=== PATIENT | female | born 1945 | race Caucasian/White ===

== ENCOUNTER 2017-12-24 21:25 | Observation (INO) | payer OTHER ==
[~2017-12-24 21:25] MED LIST: ASPI-516 CHEW; ATOR10TA15 PO; NITR1SUB3 SL; PLAV75TA29 PO
[2017-12-24 23:00] VITALS: PULSE 61
[2017-12-25 00:22] VITALS: BP 123/73; PULSE 56; RESP 18; TEMP 97.7; O2SAT 99
[2017-12-25] MEDS ORDERED: SODIUM CHLORIDE 0.9% FLUSH 10 ML FLUSH IV FLUSH PRN ×2 (02:45)
[2017-12-25] MEDS ORDERED: ONDANSETRON HCL 4 MG/2 ML VIAL IV PUSH PRN (02:45)
[2017-12-25] MEDS ORDERED: ACETAMINOPHEN 500 MG CPLT PO PRN (02:45)
[2017-12-25 07:01] VITALS: PULSE 47
[2017-12-25 07:21] VITALS: BP 143/76; PULSE 63; RESP 18; TEMP 97.9; O2SAT 99
[2017-12-25] MEDS ORDERED: CLOPIDOGREL 75 MG TAB PO SCH (09:15)
--- NOTE | 2017-12-25 10:47 | HHI.HP ---
HPI Primary Care Physician Unknown Chief Complaint Chest pain History of Present Illness This is a 72-year-old Congolese-speaking female patient that presents to ED via private vehicle with her daughter with a complaint of chest pain. She has history of CAD with a stent about 5 years ago in [place]. This information is obtained with the [employer] system. She has been having a tightness in the center of her chest with shortness of breath intermittently for the last 2 weeks. Denies nausea or diaphoresis. Nothing in particular seems to bring on the discomfort but when it is there bending forward and doing some extraneous to worsen it. When it occurs will last for up to 2 days. Found nothing in particular to help the discomfort other than just trying to calm herself down. States it does not feel similar to when eating a stent 5 years ago. Has not seen a soda worker locally, moved here from [place] about a year ago. She has a first appointment with a soda worker in [place] in January. States she has not had a stress test or heart catheterization since her stent 5 years ago. Currently has no discomfort. She is compliant with her medications. Review of Systems General: Patient denies fevers, chills, and recent travel. HEENT: Patient denies headache, sore throat, difficulty swallowing. Cardiovascular: Has the chest discomfort as mentioned above. Denies sensation of heart beating rapidly or irregularly. No syncope. Denies diaphoresis. Respiratory: She has been short of breath intermittently with the discomfort over the last 2 weeks. Denies inspirational chest discomfort. Denies coughing wheezing or hemoptysis. GI: Patient denies nausea, vomiting, diarrhea, abdominal pain, bloody stools. Musculoskeletal: Patient denies joint pain or edema. Denies calf pain or edema. Neurovascular: Patient denies numbness, tingling, weakness in extremities. Denies headache. Endocrine: Denies polyuria and polydipsia. Hematologic: Denies easy bruising. Skin: Denies rash or itching. Past Family Social History Allergies: Coded Allergies: latex (Verified Allergy, Severe, 12/24/17) Past Medical History CAD with stent 5 years ago. Hyperlipidemia. Denies hypertension and diabetes. Lifetime non-smoker. Past Surgical History Cardiac catheterization with stenting 5 years ago. 2. Hysterectomy. Reported Medications Reported Meds & Active Scripts Active Reported Atorvastatin (Atorvastatin Calcium) 10 Mg Tab 10 Mg PO HS Aspirin 81 Mg Chew 81 Mg CHEW DAILY Plavix (Clopidogrel Bisulfate) 75 Mg Tab 75 Mg PO DAILY Active Ordered Medications Current Medications Medications (Trade) Dose Ordered Sig/Sushma Route Start Time Stop Time Status Last Admin (NS Flush) 2 ml UNSCH PRN IV FLUSH 12/25/17 02:45 (NS Flush) 2 ml UNSCH PRN IV FLUSH 12/25/17 02:45 (Tylenol) 500 mg Q4H PRN PO 12/25/17 02:45 (Zofran Inj) 4 mg Q6H PRN IV PUSH 12/25/17 02:45 (Lipitor) 10 mg HS PO 12/25/17 21:00 (Plavix) 75 mg DAILY PO 12/25/17 09:15 12/25/17 09:15 Family History Her mother had CAD. Social History Lifetime non-smoker. Has occasional alcohol. Denies illicit drugs. Lives with her daughter. Physical Exam Vital Signs Vital Signs Date Time Temp Pulse Resp B/P (MAP) Pulse Ox O2 Delivery O2 Flow Rate FiO2 12/25/17 07:21 97.9 63 18 143/76 (98) 99 12/25/17 07:01 47 12/25/17 00:22 97.7 56 18 123/73 (90) 99 12/24/17 23:00 61 Physical Exam GENERAL: This is a well-nourished, well-developed patient, in no apparent distress. Patient speaks in clear complete sentences. Patient is pleasant. HEENT: Head is atraumatic and normocephalic. Neck is supple without lymphadenopathy and trachea is midline. No JVD or carotid bruits. CARDIOVASCULAR: Regular rate and rhythm without murmurs, gallops, or rubs. RESPIRATORY: Clear to auscultation. Breath sounds equal bilaterally. No wheezes , rales, or rhonchi. Chest wall is tender but is not sure if that is the same type of discomfort that brought her to the ED. No use of accessory muscles. GASTROINTESTINAL: Abdomen is nontender, nondistended. Abdomen soft. No obvious pulsatile mass or bruit. No CVA tenderness. Strong femoral pulses bilaterally. Normal bowel sounds in all quadrants. MUSCULOSKELETAL: Patient is moving upper and lower extremities freely. No calf tenderness or edema, no Homans sign. Strong pulses in upper and lower extremities. NEUROLOGICAL: Patient is alert and oriented. Cranial nerves 2-12 are grossly intact. No focal deficits and speech is clear. SKIN: No rash and turgor is normal. Laboratory Laboratory Tests Test 12/24/17 23:00 Troponin I LESS THAN 0.02 Imaging Chest x-ray reveals nothing acute. Course EKGs are sinus rhythm without significant ST segment depressions or elevations. Caprini VTE Risk Assessment Caprini VTE Risk Assessment: Mod/High Risk (score >= 2) Caprini Risk Assessment Model Point Value = 1 Point Value = 2 Point Value = 3 Point Value = 5 Age 41-60 Minor surgery BMI > 25 kg/m2 Swollen legs Varicose veins or History of unexplained or recurrent spontaneous Oral contraceptives or hormone replacement Sepsis (< 1 month) Serious lung disease, including pneumonia (< 1 month) Abnormal pulmonary function Acute myocardial infarction Congestive heart failure (< 1 month) History of inflammatory bowel disease Medical patient at bed rest Age 61-74 Arthroscopic surgery Major open surgery (> 45 min) Laparoscopic surgery (> 45 min) Malignancy Confined to bed (> 72 hours) Immobilizing plaster cast Central venous access Age >= 75 History of VTE Family history of VTE Factor V Leiden Prothrombin [id number] Lupus anticoagulant Anticardiolipin antibodies Elevated serum homocysteine Heparin-induced thrombocytopenia Other congenital or acquired thrombophilia Stroke (< 1 month) Elective arthroplasty Hip, pelvis, or leg fracture Acute spinal cord injury (< 1 month) Prophylaxis Regimen Total Risk Factor Score Risk Level Prophylaxis Regimen 0-1 Low Early ambulation 2 Moderate Order ONE of the following: *Sequential Compression Device (SCD) *Heparin 5000 units SQ BID 3-4 Higher Order ONE of the following medications: *Heparin 5000 units SQ TID *Enoxaparin/Lovenox 40 mg SQ daily (WT < 150 kg, CrCl > 30 mL/min) *Enoxaparin/Lovenox 30 mg SQ daily (WT < 150 kg, CrCl > 10-29 mL/min) *Enoxaparin/Lovenox 30 mg SQ BID (WT < 150 kg, CrCl > 30 mL/min) AND/OR *Sequential Compression Device (SCD) 5 or more Highest Order ONE of the following medications: *Heparin 5000 units SQ TID (Preferred with Epidurals) *Enoxaparin/Lovenox 40 mg SQ daily (WT < 150 kg, CrCl > 30 mL/min) *Enoxaparin/Lovenox 30 mg SQ daily (WT < 150 kg, CrCl > 10-29 mL/min) *Enoxaparin/Lovenox 30 mg SQ BID (WT < 150 kg, CrCl > 30 mL/min) AND *Sequential Compression Device (SCD) Assessment and Plan Assessment and Plan * Chest pain: Patient has had serial cardiac enzymes and EKGs for ruling out purposes. She will be seen by Dr. Gomez of cardiology in the chest pain center. I discussed the plan with the patient while using the [employer] translation system as well as her daughter being in the room towards the end of the evaluation. Both understand and are agreeable to this plan. The patient will be discharged home if her stress test is nonischemic with instructions to resume her medications. Follow-up with cardiology. Return to ED for interval issues. * CAD: This will be reassessed with stress test. She is not on a beta-rocío. She should further discuss this with her soda worker. * Hyperlipidemia: Continue medication. Patient is stable at this time. She is agreeable to this plan. Tom Olmedo December 25, 2017 10:47
[2017-12-25] MEDS ORDERED: REGADENOSON INJ 0.4 MG/5 ML SYR ONE (11:04)
--- NOTE | 2017-12-25 12:22 | RADRPT ---
EXAM DATE/TIME: 12/25/2017 10:51 [facility] COMPARISON: No previous studies available for comparison. INDICATIONS : Left sided chest pain for two weeks. Angina. DOSE: 26.5 mCi Tc99m Myoview at stress. 8.7 mCi Tc99m Myoview at rest. 0.4 mg Lexiscan STRESS SYMPTOMS: Short of breath. EJECTION FRACTION: 64% MEDICAL HISTORY : Cardiovascular disease. SURGICAL HISTORY : Coronary artery stent. section. ENCOUNTER: Initial ACUITY: 2 weeks PAIN SCALE: 7/10 LOCATION: Left chest TECHNIQUE: The patient underwent pharmacologic stress with infusion of prescribed dose. Continuous ECG tracing was monitored during stress. Gated SPECT imaging was performed after stress and conventional SPECT i maging was performed at rest. The examination was performed on a SPECT/CT scanner, both attenuation and non-corrected datasets were reviewed. FINDINGS: DISTRIBUTION: The maximum perfused segment at stress is in the anterior lateral wall. PERFUSION STUDY: The pattern of perfusion at stress is within normal limits. GATED STUDY: There is intact wall motion and thickening without hypokinetic or dyskinetic segments. CONCLUSION: 1. No fixed or reversible defects to suggest ischemia or infarction. 2. Normal wall motion and calculated ejection fraction. RISK CATEGORY: Low (<1% Annual Mortality Rate) Vidal Valdovinos MD on December 25, 2017 at 12:19 Board Certified Radiologist. This report was verified electronically.
--- NOTE | 2017-12-25 13:38 | TR ---
Date Performed: 12/25/2017 Time Performed: 11:17:01 DOCTOR: Jorge Gomez DRUG LIST: CLINICAL HISTORY: REASON FOR TEST: REASON FOR ENDING: OBSERVATION: CONCLUSION: COMMENTS: Lexiscan stress test was performed under standard four minute protocol. Radionuclide was injected one minute prior to ending the test. No electrocardiographic abormalities were present t o suggest ischemia. Nuclear imaging and interpretation are pending.
--- NOTE | 2017-12-25 13:52 | EKG ---
Date Performed: 12/25/2017 Time Performed: 00:28:13 PTAGE: 72 years EKG: SINUS BRADYCARDIA NONSPECIFIC T-WAVE ABNORMALITY BORDERLINE ECG Since PREVIOUS TRACING , no significant change noted DOCTOR: Jorge Gomez Interpretating Date/Time 12/25/2017 13:51:31
[2017-12-25 15:14] VITALS: PULSE 59
--- NOTE | 2017-12-25 16:04 | HHI.DCPOC ---
Discharge Care Plan Diagnosis: (1) Chest pain, atypical (2) CAD (coronary artery disease) (3) H/O heart artery stent (4) Hyperlipidemia Goals to Promote Your Health * To prevent worsening of your condition and complications * To maintain your health at the optimal level Directions to Meet Your Goals Take your medications as prescribed Follow your dietary instruction Follow activity as directed Keep your appointments as scheduled Take your immunizations and boosters as scheduled If your symptoms worsen call your PCP, if no PCP go to Urgent Care Center or Emergency Room Smoking is Dangerous to Your Health. Avoid second hand smoke Call the 24-hour hour crisis hotline for domestic abuse at Tom Olmedo December 25, 2017 16:04
[2017-12-25] MEDS ORDERED: KETOROLAC TROMETHAMINE 30 MG/ML (IVP) VIAL IVP ONE (16:15)
[2017-12-25] MEDS ORDERED: ATORVASTATIN 10 MG TAB PO SCH (21:00)
== END 2017-12-25 18:49 | disposition home or self-care (01) ==
LOC: NEDDLT 21:25 → NEPFCDU 21:35
DX: R07.89 Other chest pain (principal); I25.10 Atherosclerotic heart disease of native coronary artery without angina pectoris; E78.5 Hyperlipidemia, unspecified; R94.31 Abnormal electrocardiogram [ECG] [EKG]; R06.02 Shortness of breath; Z79.01 Long term (current) use of anticoagulants; Z79.82 Long term (current) use of aspirin
CPT/HCPCS: 71046; 78452; 80053; 82550; 82552; 83735; 83880; 84484; 85025; 85610; 85730; 93005; 93017; 96374; 99285; A9502; G0378; J1885; J2785